=== PATIENT | female | born 1975 | race Caucasian/White ===

== ENCOUNTER 2019-08-23 16:20 | Emergency (ER) | payer OTHER ==
[2019-08-23 16:26] VITALS: BP 140/78; PULSE 80; TEMP 98.4; BMI 24.7
--- NOTE | 2019-08-23 16:58 | PDOC ---
History of Present Illness - General Chief Complaint: Ear Problem Stated Complaint: CHILLS/VOMITTING/R/EAR/PAIN Time Seen by Provider: 08/23/19 16:28 History Source: Patient Exam Limitations: No Limitations Past History - Past Medical History Allergies/Adverse Reactions: Allergies Allergy/AdvReac Type Severity Reaction Status Date / Time No Known Allergies Allergy Verified 08/23/19 16:26 Home Medications: Ambulatory Orders NK [No Known Home Medication] 08/23/19 COPD: No - Psycho Social/Smoking Cessation Hx Smoking History: Never smoked *Physical Exam - Vital Signs Last Vital Signs Temp Pulse Resp BP Pulse Ox 98.4 F 80 18 140/78 100 08/23/19 16:22 08/23/19 16:22 08/23/19 16:22 08/23/19 16:22 08/23/19 16:22 - Physical Exam General Appearance: No: Apparent Distress HEENT: positive: Normal Voice, TMs Normal, Pharynx Normal, Nasal Congestion. negative: Muffled/Hoarse voice, Pharyngeal Erythema, Tonsillar Exudate, Tonsillar Erythema, Rhinorrhea Respiratory/Chest: positive: Lungs Clear, Normal Breath Sounds. negative: Respiratory Distress Cardiovascular: positive: Regular Rhythm, Regular Rate, S1, S2. negative: Murmur Gastrointestinal/Abdominal: positive: Normal Bowel Sounds, Soft. negative: Tender, Distended, Guarding, Rebound Neurologic: positive: Alert ED Treatment Course - RADIOLOGY Radiology Studies Ordered: Category Date Time Status CHEST PA & LAT [RAD] Stat Radiology 08/23/19 16:41 Ordered Medical Decision Making - Medical Decision Making 44 y/o F with no sig pmh presents body aches, subjective fever, cough, congestion, R ear pain, occasional postnasal drip, sneezing and watery eyes x 6 days. Had subjective fever for 2 days last week. Did not take meds today. Denies sob, cp, abd pain, n/v/d, urinary sxs, recent travel. Could be viral syndrome vs allergies Afebrile here and well appearing Plan: CXR 08/23/19 16:54 CXR negative stable for dc 08/23/19 17:09 Discharge - Discharge Information Problems reviewed: Yes Clinical Impression/Diagnosis: Viral syndrome Condition: Stable Disposition: HOME - Admission No - Additional Discharge Information Prescription Drug Monitoring Program (I-STOP) results: I-STOP not reviewed - Follow up/Referral - Patient Discharge Instructions Patient Printed Discharge Instructions: DI for Viral Syndrome Additional Instructions: Thank you for choosing [facility]. It was a pleasure taking care of you. You have viral infection Alternate between Tylenol every 4 and Motrin every 6 hours as needed for fever Recommend rest and hydration Use saline nasal spray and Nedi-pot to help with congestion You may also use Flonase nasal spray (use for at least 3 days) Follow-up with your doctor in 2 days Return to the Emergency Department if your symptoms worsen or persist or have other concerning symptoms. Debra por elegir el [facility]. Fue un placer cuidar de ti. Tiene tena infeccin viral Alterne entre Tylenol cada 4 y Motrin cada 6 horas segn sea necesario para la fiebre Recomendar descanso e hidratacin. Use aerosol nasal salino y Nedi-pot para ayudar con la congestin. Tia puede usar el aerosol nasal de Flonase (usar zen al menos 3 mondragon) Seguimiento con vega mdico en 2 mondragon. Regrese al departamento de emergencias si cathryn sntomas empeoran o persisten o si tiene otros sntomas preocupantes. - Post Discharge Activity
== END 2019-08-23 17:19 | disposition home or self-care (01) ==
LOC: JERFT 16:20
DX: B34.9 Viral infection, unspecified (principal)
CPT/HCPCS: 71046-TC-FY; 99282-25